=== PATIENT | male | born 1950 | race Caucasian/White ===

== ENCOUNTER → 2017-12-13 | Outpatient (CLI) | payer MEDICARE, BC ==
[~2017-12-13] MED LIST: ATOR10 PO; CEPH500 PO; Desyrel50 MG PO; HYDACE10B PO; LISI20 PO; METO25ER PO; MUPI2TC TOP; TORSE20 PO; XARELTO20 MG PO
[2017-12-13 16:59] LABS: Protein, Urine Quantitative 7.7 mg/dL (0.0-11.9)
[2017-12-13 17:03] LABS: Microalbumin, Urine Quant. 11.2 mg/L (0.000-20.000)
== END ==
LOC: LAB 09:00 → LAB SHORT 09:00 → LAB FUT 12-12 11:05
PROVIDERS: Internal Medicine Nephrology
DX: N18.3 Chronic kidney disease, stage 3 (moderate) (principal); D63.1 Anemia in chronic kidney disease; R31.9 Hematuria, unspecified; R80.9 Proteinuria, unspecified
CPT/HCPCS: 81050; 82043; 84156

== ENCOUNTER 2019-03-19 07:29 | Day surgery (SDC) | payer MEDICARE, BC ==
[~2019-03-19] VITALS: Ht 195.6 cm; Wt 258.0 kg
[~2019-03-19 07:29] MED LIST changes: +POTA10T PO
== END 2019-03-19 09:28 | disposition home or self-care (01) ==
LOC: ORSCSDS 07:29
PROVIDERS: Internal Medicine Gastroenterology
PROC: 0DBK8ZX Excision of Ascending Colon, Via Natural or Artificial Opening Endoscopic, Diagnostic (ICD-10-PCS; principal; 2019-03-19 08:45)
PROC: 0DBM8ZX Excision of Descending Colon, Via Natural or Artificial Opening Endoscopic, Diagnostic (ICD-10-PCS; principal; 2019-03-19 08:45)
DX: Z12.11 Encounter for screening for malignant neoplasm of colon (principal); Z86.010 Personal history of colon polyps; D12.2 Benign neoplasm of ascending colon; K63.5 Polyp of colon; K64.8 Other hemorrhoids; K57.30 Diverticulosis of large intestine without perforation or abscess without bleeding; G47.33 Obstructive sleep apnea (adult) (pediatric); I50.9 Heart failure, unspecified; E66.9 Obesity, unspecified; Z68.32 Body mass index [BMI] 32.0-32.9, adult; Z79.01 Long term (current) use of anticoagulants; Z79.899 Other long term (current) drug therapy
CPT/HCPCS: 88305; J2250; J2704; J7120

== ENCOUNTER 2019-04-24 16:26 | Inpatient (IN) | payer MEDICARE, BC ==
[~2019-04-24] VITALS: Ht 190.5 cm; Wt 115.0 kg
[~2019-04-24 16:26] MED LIST changes: -ACET325 PO; -ALLO100 PO; -Acetaminophen-1 EAC2 PO; -Amoxicillin500 MG PO; -BENGAY113 GM; -Colace100 MG PO; -Florastor250 MG PO; -Lisinopril2.5 MG PO; -METCAR500 PO; -MIRALAX17 GM PO; -ONDA4ODT MM; -PANT40 PO; -TORS10 PO; -TRAZ50 PO; -Toprol Xl25 MG PO; -UROCIT-K5 MEQ PO; -VITAMIN D35000 UNIT PO
[2019-04-24 16:57] LABS: BASOPHILS ABSOLUTE AUTO 0.05 K/mm3 (0.00-0.23); BASOPHILS PERCENT AUTO 1 % (0-2); EOSINOPHILS ABSOLUTE AUTO 0.36 K/mm3 (0.00-0.68); EOSINOPHILS PERCENT AUTO 4 % (0-6); Hematocrit 39.2 % (37.0-53.0); Hemoglobin 12.3 g/dL (13.5-17.5); IMMATURE GRAN ABSOLUTE AUTO 0.04 K/mm3 (0.00-0.10); IMMATURE GRAN PERCENT AUTO 1 % (0-1); LYMPHOCYTES ABSOLUTE AUTO 2.16 K/mm3 (0.84-5.20); LYMPHOCYTES PERCENT AUTO 26 % (21-46); MONOCYTES ABSOLUTE AUTO 0.86 K/mm3 (0.16-1.47); MONOCYTES PERCENT AUTO 10 % (4-13); Mean Corpuscular HGB Conc 31.4 g/dL (31.5-36.5); Mean Corpuscular Volume 99 fL (80-100); Mean Platelet Volume 9.4 fL (9.1-12.4); NEUTROPHILS ABSOLUTE AUTO 5.01 K/mm3 (1.96-9.15); NEUTROPHILS PERCENT AUTO 59 % (41-73); Platelet Count 232 K/mm3 (150-400); RDW Coefficient Variation 13.2 % (11.7-14.2); RDW Standard Deviation 47.8 fL (35.1-46.3); Red Blood Cell Count 3.97 M/mm3 (4.30-5.90); White Blood Cell Count 8.48 K/mm3 (4.00-11.30)
[2019-04-24 17:07] LABS: Albumin, Blood 3.7 g/dL (3.4-5.0); Albumin/Globulin Ratio 1.2 (0.8-1.8); Bilirubin, Total 1.1 mg/dL (0.1-1.0); Bun/Creatinine Ratio 29.1 (12.0-20.0); Calcium, Blood 9.3 mg/dL (8.5-10.1); Creatinine, Blood 2.2 mg/dL (0.60-1.20); Potassium, Blood 4.8 mmol/L (3.5-5.5); Total Protein, Blood 6.7 g/dL (6.4-8.2)
[2019-04-24 18:37] LABS: Source, Urine Voided
[2019-04-24 18:41] LABS: Bilirubin, Urine Neg (Neg); Blood, Urine Neg (Neg); Glucose Qualitative, Urine Neg (Neg); Ketones, Urine Neg (Neg); Leukocyte Esterase, Urine Neg (Neg); Nitrite, Urine Neg (Neg); Protein, Urine Neg (Neg); Urobilinogen, Urine NORM (Normal)
[2019-04-24 18:56] LABS: Appearance, Urine Clear (Clear); Color, Urine Yellow (P-Yellow)
[2019-04-24] MEDS ORDERED: ATOR10 PO (20:17)
[2019-04-24] MEDS ORDERED: LISI20 PO (20:17)
[2019-04-24] MEDS ORDERED: XARELTO20 MG PO (20:17)
[2019-04-24] MEDS ORDERED: TORSE20 PO (20:18)
[2019-04-24] MEDS ORDERED: Toprol Xl25 MG PO (20:18)
[2019-04-24] MEDS ORDERED: UROCIT-K5 MEQ PO (20:19)
[2019-04-24] MEDS ORDERED: TRAZ50 PO (20:54)
[2019-04-24] MEDS ORDERED: VITAMIN D35000 UNIT PO (20:54)
[2019-04-24] MEDS ORDERED: METCAR500 PO (21:46)
[2019-04-24] MEDS ORDERED: Acetaminophen-1 EAC2 PO (21:46)
--- NOTE | 2019-04-24 22:51 | NUR ---
CALLED HOSPITALIST, JEFF HERNANDEZ, TO CLARIFY DVT PROPHYLAXIS ORDER. ORDER FOR SCD'S AND XARELTO TO BE STARTED PLACED BY DR ELIZABETH. DAVID TALKED DR ELIZABETH TO CLARIFY WHICH ONE TO CONTINUE. PER DR ELIZABETH, CONTINUE SCD'S, THE BLOOD CLOT IN LLE IS INSIGNIFICANT AND OKAY TO PLACE SCD'S. XARELTO WILL BE DISCONTINUED AT THIS TIME.
--- NOTE | 2019-04-25 05:12 | NUR ---
SHIFT SUMMARY RECIEVED REPORT FROM MINDY JOINER RN. ARRIVED TO MEDICAL FLOOR @ 2116 VIA STRETCHER. ORIENTED TO ROOM AND CALL SYSTEM. A/O, ABLE TO MAKE NEEDS KNOWN. COOPERATIVE WITH CARE. 1P ASSIST TO BATHROOM; STEADY GAIT. CPAP @ HS. FEBRILE SINCE ARRIVAL; MEDICATED PER EMAR. EMESIS X1; ANTIEMETIC GIVEN. BED REAMINS IN LOWEST POSITION. CALL LIGHT WITHIN REACH. WCTM. REPORT TO ONCOMING RN.
[2019-04-25 05:19] LABS: BASOPHILS ABSOLUTE AUTO 0.02 K/mm3 (0.00-0.23); BASOPHILS PERCENT AUTO 0 % (0-2); EOSINOPHILS ABSOLUTE AUTO 0.03 K/mm3 (0.00-0.68); EOSINOPHILS PERCENT AUTO 0 % (0-6); Hematocrit 36.3 % (37.0-53.0); Hemoglobin 11.5 g/dL (13.5-17.5); IMMATURE GRAN ABSOLUTE AUTO 0.05 K/mm3 (0.00-0.10); IMMATURE GRAN PERCENT AUTO 1 % (0-1); LYMPHOCYTES ABSOLUTE AUTO 0.66 K/mm3 (0.84-5.20); LYMPHOCYTES PERCENT AUTO 6 % (21-46); MONOCYTES ABSOLUTE AUTO 1.05 K/mm3 (0.16-1.47); MONOCYTES PERCENT AUTO 10 % (4-13); Mean Corpuscular HGB 31.3 pg (26.0-34.0); Mean Corpuscular HGB Conc 31.7 g/dL (31.5-36.5); Mean Corpuscular Volume 99 fL (80-100); Mean Platelet Volume 9.8 fL (9.1-12.4); NEUTROPHILS ABSOLUTE AUTO 9.08 K/mm3 (1.96-9.15); NEUTROPHILS PERCENT AUTO 83 % (41-73); Platelet Count 219 K/mm3 (150-400); RDW Coefficient Variation 13.5 % (11.7-14.2); RDW Standard Deviation 48.9 fL (35.1-46.3); Red Blood Cell Count 3.67 M/mm3 (4.30-5.90); White Blood Cell Count 10.89 K/mm3 (4.00-11.30)
[2019-04-25 06:05] LABS: Albumin, Blood 3.5 g/dL (3.4-5.0); Albumin/Globulin Ratio 1.2 (0.8-1.8); Bilirubin, Total 2.7 mg/dL (0.1-1.0); Bun/Creatinine Ratio 22.4 (12.0-20.0); Calcium, Blood 8.9 mg/dL (8.5-10.1); Creatinine, Blood 2.9 mg/dL (0.60-1.20); Globulin, Blood 2.8 g/dL (2.2-4.0); Potassium, Blood 6.2 mmol/L (3.5-5.5); Total Protein, Blood 6.3 g/dL (6.4-8.2)
--- NOTE | 2019-04-25 06:39 | NUR ---
4458 PHYSICIAN CORRESPONDENCE PATIENT HAS MULTIPLE ABNORMAL LABS INCLUDING CRITICAL K+ @ 6.2. BLADDER SCAN ORDERED. TELE. SX CONSULT. IV ZOSYN. BICARB AND INSULIN.
[2019-04-25 09:33] LABS: Bun/Creatinine Ratio 22.7 (12.0-20.0); Calcium, Blood 9.2 mg/dL (8.5-10.1); Creatinine, Blood 3.08 mg/dL (0.60-1.20); Potassium, Blood 4.9 mmol/L (3.5-5.5)
--- NOTE | 2019-04-25 09:45 | NUR ---
SPOKE WITH DR DON RE: K LEVEL = 4.9. VO TO D/C ORDERS FOR IV INSULIN, DEXTROSE, CALCIUM. DAY SURGERY INFORMED OF K LEVEL. DAUGHTER AT BEDSIDE.
--- NOTE | 2019-04-25 10:55 | NUR ---
DAY SURGERY RN HERE, PATIENT TO DAY SURGERY.
--- NOTE | 2019-04-25 11:08 | NUR ---
PT TRANSPORTED TO [facility]. [facility] WITH PLANNED SURGERY. LUNG SOUNDS CLEAR. PT WITH TREMORS, STATESTHIS HAS STARTED SINCE HE HAS BEEN IN THE HOSPITAL. BP88/52. DR. OROZCO AT [facility] AND AWARE.
--- NOTE | 2019-04-25 11:14 | NUR ---
REPORT GIVEN TO DON BYRNES RN.
--- NOTE | 2019-04-25 11:31 | NUR ---
Pt SENT DOWN FOR SURGERY, ROUNDING NOT NEEDED.
--- NOTE | 2019-04-25 12:06 | NUR ---
04/25/19 1206 Ismael Morris THE SURGICAL TEAM, INCLUDING THE SURVEY FIELD TECHNICIAN, SCRUB AND ANESTHESIOLOGIST CONSULTED THE SURGEON ABOUT USING PAS STOCKINGS ON THIS PT WHO IS CURRENTLY BEING TREATED FOR A DVT. THE SURGEON REQUESTED THAT WE USE THE PAS STOCKINGS DURING THE PROCEDURE.
--- NOTE | 2019-04-25 12:30 | NUR ---
REPORT GIVEN TO Heath KRISHNA. PATIENT TO ADMIT TO ROOM 230 FOLLOWING SURGERY.
--- NOTE | 2019-04-25 19:24 | NUR ---
SUMMARY: SOME INCREASED SOB AND TACHYPNEA POST OP. RT CALLED AND PT PUT ON HOME CPAP, SEE RT NOTES. DR. SANTANATRATE NOTIFIED OF PT RESPIRATORY STATUS POST OP. SEE NEW ORDERS. ALL OTHER VSS, PT A/O. SURGICAL SITES WNL, MEDICATED FOR PAIN PRN. TELE VERIFIED, AND WNL. PT DENIES CHEST PAIN. WILL CTM AND GIVE REPORT TO NOC RN. NO ACUTE CONCERNS AT THIS TIME.
[2019-04-26 03:07] LABS: HBSAG SCREEN Negative (Negative); HEP A AB, IGM Negative (Negative); HEP B CORE AB, IGM Negative (Negative); HEP C VIRUS AB <0.1 (0.0-0.9)
[2019-04-26 04:48] LABS: BASOPHILS ABSOLUTE AUTO 0.01 K/mm3 (0.00-0.23); BASOPHILS PERCENT AUTO 0 % (0-2); EOSINOPHILS PERCENT AUTO 0 % (0-6); Hemoglobin 12.1 g/dL (13.5-17.5); IMMATURE GRAN ABSOLUTE AUTO 0.05 K/mm3 (0.00-0.10); IMMATURE GRAN PERCENT AUTO 1 % (0-1); LYMPHOCYTES ABSOLUTE AUTO 0.56 K/mm3 (0.84-5.20); LYMPHOCYTES PERCENT AUTO 6 % (21-46); MONOCYTES ABSOLUTE AUTO 0.75 K/mm3 (0.16-1.47); MONOCYTES PERCENT AUTO 8 % (4-13); Mean Corpuscular HGB 31.9 pg (26.0-34.0); Mean Corpuscular HGB Conc 31.8 g/dL (31.5-36.5); Mean Corpuscular Volume 100 fL (80-100); Mean Platelet Volume 9.5 fL (9.1-12.4); NEUTROPHILS ABSOLUTE AUTO 8.14 K/mm3 (1.96-9.15); NEUTROPHILS PERCENT AUTO 86 % (41-73); Platelet Count 220 K/mm3 (150-400); RDW Coefficient Variation 14.1 % (11.7-14.2); RDW Standard Deviation 52.4 fL (35.1-46.3); Red Blood Cell Count 3.79 M/mm3 (4.30-5.90); White Blood Cell Count 9.51 K/mm3 (4.00-11.30)
[2019-04-26 05:10] LABS: Magnesium, Blood 2.3 mg/dL (1.6-2.4)
[2019-04-26 05:20] LABS: Alanine Aminotransfer (ALT/SGP 479 U/L (12-78); Albumin, Blood 3.5 g/dL (3.4-5.0); Alk Phos 199 U/L (50-136); Anion Gap 10 mmol/L (6-16); Aspartate Aminotrans (AST/SGOT 415 U/L (12-37); Bilirubin, Total 3.7 mg/dL (0.1-1.0); Blood Urea Nitrogen 68 mg/dL (8-24); CO2, Blood 21 mmol/L (21-32); Calcium, Blood 9.4 mg/dL (8.5-10.1); Chloride, Blood 111 mmol/L (98-108); Globulin, Blood 3.5 g/dL (2.2-4.0); Glomerular Filtration Rate 19 (60-); Glucose, Blood 164 mg/dL (70-99); Phosphorus, Blood 2.9 mg/dL (2.5-4.9); Potassium, Blood 5.6 mmol/L (3.5-5.5); Sodium, Blood 142 mmol/L (136-145)
--- NOTE | 2019-04-26 05:35 | NUR ---
POD 1 S/P LAP SURJIT. PT HAD NO ACUTE CHANGES T/O NIGHT; VSS. HR SINUS TACH 70'S-110 PER TELE MONITOR. PT DENIED CP, REP WOB IMPROVING, DENIED NEED FOR RT TX. DRESSINGS CDI. PAIN MGD PER EMAR, PT REP PBETTER PAIN CONTROL W/PO PAIN MEDS. PT STRUGGLED W/N/V SURING NIGHT, HAD 1 EPISODE OF EMESIS. PT UP OOB W/FWW+SBA, IS USING CALL LIGHT FOR ASSISTANCE. WILL CONT TO MONITOR UNTIL REP GIVEN TO ONCOMING RN.
[2019-04-26 15:23] LABS: Albumin, Blood 3.3 g/dL (3.4-5.0); Albumin/Globulin Ratio 0.9 (0.8-1.8); Bilirubin, Total 2.5 mg/dL (0.1-1.0); Bun/Creatinine Ratio 20.2 (12.0-20.0); Calcium, Blood 9.6 mg/dL (8.5-10.1); Creatinine, Blood 3.27 mg/dL (0.60-1.20); Globulin, Blood 3.5 g/dL (2.2-4.0); Potassium, Blood 4.9 mmol/L (3.5-5.5); Total Protein, Blood 6.8 g/dL (6.4-8.2)
--- NOTE | 2019-04-26 15:47 | NUR ---
REPORT GIVEN TO JOSE DESIR RN AT 2444
--- NOTE | 2019-04-26 23:28 | NUR ---
PATIENT CALLED TO STAFF TO REPORT PAIN POINTED TO MID CHEST AND REPORTS HE FEELS IT IS RELATED TO "HEARTBURN"; "I TOOK ALL THOSE MEDS LAST NIGHT AND DIDNT EAT". PATIENT REPORTS "NOT EATING AND TAKING MEDICATIONS, IT'S A SET UP FOR HEARTBURN". PATIENT ALSO REPORTED NAUSEA; MEDICATED PER EMAR; PATIENT REPORTS FEELING ALOT BETTER. PATIENT REPORTS HE WOULD LIKE SOME DANNY MIST OR TO GET UP OUT OF BED.
--- NOTE | 2019-04-26 23:41 | NUR ---
PATIENT STOOD WITH SBA AND FWW; WALKED AROUND ROOM; BELCHED ABOUT 8 TIMES; REPORTS FEELNG "MUCH, MUCH BETTER". PATIENT BACK IN BED; REQUESTED CPAP AND BELCHED A FEW MORE TIMES. WILL CONTINUE TO MONITOR AND ASSESS UNTIL END OF SHIFT.
--- NOTE | 2019-04-27 04:20 | NUR ---
ASSUMED CARE OF PATIENT AT APPROXIMATELY 1910 FROM FRANCESCO DESIR. PATIENT ALERT AND ORIENTED X4. PATIENT REPORTS PAIN TOLERABLE AT THIS TIME. PATIENT REPORTS N/T TO BLE AND HAS SOME WEAKNESS; +1 EDEMA; REPORTED CHRONIC. PATIENT REPORTS LEFT LEG GIVES HIM ISSUES WHEN WALKING; ONE ASSIST WITH FWW OUT OF BED. PATIENT NAUSEOUS ONCE LAST NIGHT; REPORTED HEARTBURN INTERMITTENT AT START OF SHIFT YESTERDAY; SEE PREVIOUS NURSING NOTED. NSR ON TELE; OXYGEN SATURATION ABOVE 90% ON ROOM AIR; USES HOME CPAP WITH 2LPM BLEED IN. PATIENT HAS HARSH COUGH; COUGHING UP CLEAR TO THICK YELLOW SPUTUM. PATIENT USES URINAL IN BED. PATIENT CURRENTLY RESTING IN BED; CALL LIGHT IN REACH; BED IN LOWEST POSISTION; BED ALARM ON; WILL CONTINUE TO MONITOR AND ASSESS UNTIL END OF SHIFT.
[2019-04-27 05:01] LABS: BASOPHILS ABSOLUTE AUTO 0.02 K/mm3 (0.00-0.23); BASOPHILS PERCENT AUTO 0 % (0-2); EOSINOPHILS ABSOLUTE AUTO 0.47 K/mm3 (0.00-0.68); EOSINOPHILS PERCENT AUTO 6 % (0-6); Hematocrit 36.2 % (37.0-53.0); Hemoglobin 11.5 g/dL (13.5-17.5); IMMATURE GRAN ABSOLUTE AUTO 0.02 K/mm3 (0.00-0.10); IMMATURE GRAN PERCENT AUTO 0 % (0-1); LYMPHOCYTES ABSOLUTE AUTO 0.96 K/mm3 (0.84-5.20); LYMPHOCYTES PERCENT AUTO 11 % (21-46); MONOCYTES ABSOLUTE AUTO 0.74 K/mm3 (0.16-1.47); MONOCYTES PERCENT AUTO 9 % (4-13); Mean Corpuscular HGB 31.7 pg (26.0-34.0); Mean Corpuscular HGB Conc 31.8 g/dL (31.5-36.5); Mean Corpuscular Volume 100 fL (80-100); Mean Platelet Volume 9.8 fL (9.1-12.4); NEUTROPHILS ABSOLUTE AUTO 6.24 K/mm3 (1.96-9.15); NEUTROPHILS PERCENT AUTO 74 % (41-73); Platelet Count 226 K/mm3 (150-400); RDW Coefficient Variation 14.1 % (11.7-14.2); Red Blood Cell Count 3.63 M/mm3 (4.30-5.90); White Blood Cell Count 8.45 K/mm3 (4.00-11.30)
[2019-04-27 05:25] LABS: Alanine Aminotransfer (ALT/SGP 324 U/L (12-78); Albumin, Blood 3.2 g/dL (3.4-5.0); Alk Phos 216 U/L (50-136); Anion Gap 9 mmol/L (6-16); Aspartate Aminotrans (AST/SGOT 219 U/L (12-37); Bilirubin, Total 2.3 mg/dL (0.1-1.0); Blood Urea Nitrogen 67 mg/dL (8-24); Bun/Creatinine Ratio 22.3 (12.0-20.0); CO2, Blood 20 mmol/L (21-32); Calcium, Blood 9.5 mg/dL (8.5-10.1); Chloride, Blood 108 mmol/L (98-108); Globulin, Blood 3.3 g/dL (2.2-4.0); Glomerular Filtration Rate 22 (60-); Glucose, Blood 118 mg/dL (70-99); Magnesium, Blood 2.4 mg/dL (1.6-2.4); Phosphorus, Blood 3.4 mg/dL (2.5-4.9); Potassium, Blood 4.6 mmol/L (3.5-5.5); Sodium, Blood 137 mmol/L (136-145); Total Protein, Blood 6.5 g/dL (6.4-8.2)
--- NOTE | 2019-04-27 06:43 | NUR ---
NO ACUTE CHANGES TO REPORT. PATIENT SLEPT ABOUT EIGHT HOURS LAST NIGHT.
[2019-04-27] MEDS ORDERED: TORS10 PO (09:27)
--- NOTE | 2019-04-27 15:16 | NUR ---
UPDATED DR. FROST ON I/O. NO NEW ORDERS AT THIS TIME.
--- NOTE | 2019-04-27 16:49 | NUR ---
SHIFT SUMMARY PT DOING BETTER THIS SHIFT. VSS. LAP SITES TO ABD ARE CDI. MEDICATED WITH NORCO NEEDED FOR PAIN. ROSA CLEAR LIQ DIET, ADVANCING TO FULL LIQ FOR DINNER. PT PASSING GAS AND DENIES N/V. LUNGS SOUNDS WERE WHEEZY THIS MORNING. RT TREATMENTS AND LASIX GIVEN. LUNG SOUNDS WITH LESS WHEEZES AND PT REPORTS LESS SOB. ON RA. USES CPAP AT NOC. GOOD URINE OUTPUT CLEAR YELLOW. USING THE URINAL TO VOID. IV IS SL. PT DID SIT IN THE RECLINER CHAIR FOR PART OF THE DAY AND DID HAVE A SHOWER. FAMILY PRESENT AT BEDSIDE FOR SUPPORT. WILL CONT TO MONITOR. CALL LIGHT WITHIN REACH.
--- NOTE | 2019-04-28 03:04 | NUR ---
SHIFT SUMMARY: PATIENT AMBULATED ENTIRE UNIT THIS SHIFT WITH SOME SOB THAT PATIENT STATED WAS BASELINE FOR HIM. INCISION SITE LOOKS C/D/I WITH NO SIGN OF INFECTION NOTED. PATIENT COMPLIANT WITH CALL LIGHT THIS SHIFT AND USING CPAP. SBP 95 BUT PATIENT ASYMPTOMATIC AND HAD RECIEVED LASIX EARLIER IN THE DAY. NO OTHER ISSUES NOTED, CALL LIGHT WITHIN REACH AND BED LOW AND LOCKED.
[2019-04-28 05:15] LABS: BASOPHILS ABSOLUTE AUTO 0.03 K/mm3 (0.00-0.23); BASOPHILS PERCENT AUTO 0 % (0-2); EOSINOPHILS ABSOLUTE AUTO 0.56 K/mm3 (0.00-0.68); EOSINOPHILS PERCENT AUTO 8 % (0-6); Hematocrit 33.1 % (37.0-53.0); Hemoglobin 10.5 g/dL (13.5-17.5); IMMATURE GRAN ABSOLUTE AUTO 0.05 K/mm3 (0.00-0.10); IMMATURE GRAN PERCENT AUTO 1 % (0-1); LYMPHOCYTES ABSOLUTE AUTO 1.31 K/mm3 (0.84-5.20); LYMPHOCYTES PERCENT AUTO 19 % (21-46); MONOCYTES ABSOLUTE AUTO 0.75 K/mm3 (0.16-1.47); MONOCYTES PERCENT AUTO 11 % (4-13); Mean Corpuscular HGB 31.7 pg (26.0-34.0); Mean Corpuscular HGB Conc 31.7 g/dL (31.5-36.5); Mean Corpuscular Volume 100 fL (80-100); Mean Platelet Volume 9.7 fL (9.1-12.4); NEUTROPHILS ABSOLUTE AUTO 4.19 K/mm3 (1.96-9.15); NEUTROPHILS PERCENT AUTO 61 % (41-73); Platelet Count 202 K/mm3 (150-400); RDW Coefficient Variation 14.1 % (11.7-14.2); RDW Standard Deviation 51.7 fL (35.1-46.3); Red Blood Cell Count 3.31 M/mm3 (4.30-5.90); White Blood Cell Count 6.89 K/mm3 (4.00-11.30)
[2019-04-28 05:36] LABS: Albumin, Blood 2.8 g/dL (3.4-5.0); Albumin/Globulin Ratio 0.8 (0.8-1.8); Bilirubin, Total 2.4 mg/dL (0.1-1.0); Bun/Creatinine Ratio 20.1 (12.0-20.0); Calcium, Blood 8.8 mg/dL (8.5-10.1); Creatinine, Blood 3.34 mg/dL (0.60-1.20); Globulin, Blood 3.4 g/dL (2.2-4.0); Potassium, Blood 4.5 mmol/L (3.5-5.5); Total Protein, Blood 6.2 g/dL (6.4-8.2)
--- NOTE | 2019-04-28 16:25 | NUR ---
SHIFT SUMMARY NO ACUTE CHANGES TODAY. PT CONT TO DO WELL. STERI STRIPS TO ABD ARE CDI. ROSA FULL LIQ DIET AND ADVANCING TO REG IN THE MORNING. PT PASSING GAS AND HAD A BM TODAY. AMBULATING HALLWAY WITH 1 SBA WITH FWW. DIURESING WELL. FAMILY AT BEDSIDE FOR SUPPORT. PT USES CALL LIGHT APPROPRIATELY.
[2019-04-29 04:13] LABS: BASOPHILS ABSOLUTE AUTO 0.04 K/mm3 (0.00-0.23); BASOPHILS PERCENT AUTO 1 % (0-2); EOSINOPHILS ABSOLUTE AUTO 0.59 K/mm3 (0.00-0.68); EOSINOPHILS PERCENT AUTO 9 % (0-6); Hematocrit 33.1 % (37.0-53.0); Hemoglobin 10.7 g/dL (13.5-17.5); IMMATURE GRAN ABSOLUTE AUTO 0.09 K/mm3 (0.00-0.10); IMMATURE GRAN PERCENT AUTO 1 % (0-1); LYMPHOCYTES ABSOLUTE AUTO 1.58 K/mm3 (0.84-5.20); LYMPHOCYTES PERCENT AUTO 23 % (21-46); MONOCYTES ABSOLUTE AUTO 0.75 K/mm3 (0.16-1.47); MONOCYTES PERCENT AUTO 11 % (4-13); Mean Corpuscular HGB 31.8 pg (26.0-34.0); Mean Corpuscular HGB Conc 32.3 g/dL (31.5-36.5); Mean Corpuscular Volume 99 fL (80-100); Mean Platelet Volume 9.6 fL (9.1-12.4); NEUTROPHILS ABSOLUTE AUTO 3.81 K/mm3 (1.96-9.15); NEUTROPHILS PERCENT AUTO 56 % (41-73); Platelet Count 232 K/mm3 (150-400); RDW Standard Deviation 50.6 fL (35.1-46.3); Red Blood Cell Count 3.36 M/mm3 (4.30-5.90); White Blood Cell Count 6.86 K/mm3 (4.00-11.30)
[2019-04-29 04:37] LABS: Alanine Aminotransfer (ALT/SGP 159 U/L (12-78); Albumin, Blood 2.9 g/dL (3.4-5.0); Albumin/Globulin Ratio 0.8 (0.8-1.8); Alk Phos 260 U/L (50-136); Anion Gap 9 mmol/L (6-16); Aspartate Aminotrans (AST/SGOT 79 U/L (12-37); Blood Urea Nitrogen 58 mg/dL (8-24); Bun/Creatinine Ratio 23.5 (12.0-20.0); CO2, Blood 22 mmol/L (21-32); Calcium, Blood 9.1 mg/dL (8.5-10.1); Chloride, Blood 106 mmol/L (98-108); Creatinine, Blood 2.47 mg/dL (0.60-1.20); Globulin, Blood 3.6 g/dL (2.2-4.0); Glomerular Filtration Rate 28 (60-); Glucose, Blood 108 mg/dL (70-99); Magnesium, Blood 2.2 mg/dL (1.6-2.4); Phosphorus, Blood 3.6 mg/dL (2.5-4.9); Potassium, Blood 4.6 mmol/L (3.5-5.5); Sodium, Blood 137 mmol/L (136-145); Total Protein, Blood 6.5 g/dL (6.4-8.2)
[2019-04-29 04:38] LABS: Bilirubin, Total 1.3 mg/dL (0.1-1.0)
--- NOTE | 2019-04-29 05:46 | NUR ---
SHIFT SUMMARY PT A&O X4 T/O SHIFT. POD#4 LAP SURJIT; LAP SITES CDI. ABD DISTENDED, BTX4; PT DENIES NAUSESA, TOLERATING DIET WELL. CHRONIC AND ACUTE PAIN MANAGED PER EMAR. HOME PAP AND O2 BLEED BASELINE WHILE ASLEEP; CONT. OXIMITRY IN PLACE. PT SOW WITH EXERTION. UP IN CHAIR THIS AM. SCD'S TO BLE'S. CALL LIGHT IN REACH; PT DEMONSTRATES USE. WCTM UNTIL REPORT TO DAY SHIFT RN.
[2019-04-29] MEDS ORDERED: Lisinopril2.5 MG PO (09:45)
[2019-04-29] MEDS ORDERED: ACET325 PO (09:46)
[2019-04-29] MEDS ORDERED: BENGAY113 GM (09:46)
[2019-04-29] MEDS ORDERED: PANT40 PO (09:47)
[2019-04-29] MEDS ORDERED: ONDA4ODT MM (09:47)
[2019-04-29] MEDS ORDERED: Colace100 MG PO (09:47)
[2019-04-29] MEDS ORDERED: MIRALAX17 GM PO (09:48)
[2019-04-29] MEDS ORDERED: Florastor250 MG PO (09:48)
--- NOTE | 2019-04-29 12:40 | NUR ---
DISCHARGE: PACKET PRINTED AND INSTRUCTIONS GIVEN, PT VERBALIZED UNDERSTANDING . PT TO HAVE REPEAT OUT PT LABS IN 2-3 DAYS, SCRIPT FROM DR. DON GIVEN TO PT. OTHER NEW MEDS CALLED TO PHARMACY. IV DC'D AND PT LEFT UNIT IN WC WITH FRIEND AT 1207
== END 2019-04-29 12:06 | disposition home or self-care (01) | DRG 412 ==
LOC: ER 16:26 → MEDS 20:05 → ER 20:05 → MEDS 20:06 → SURS 20:06 → MEDS 21:17 → SURS 04-25 13:06
PROVIDERS: Emergency Medicine; Family Medicine; Internal Medicine Nephrology; Surgery; ADMIT Hospitalist
PROC: BF13YZZ Fluoroscopy of Gallbladder and Bile Ducts using Other Contrast (ICD-10-PCS; 2019-04-25)
PROC: 3C1ZX8Z Irrigation of Indwelling Device using Irrigating Substance, External Approach (ICD-10-PCS; 2019-04-25)
PROC: 0FJB4ZZ Inspection of Hepatobiliary Duct, Percutaneous Endoscopic Approach (ICD-10-PCS; 2019-04-25)
PROC: 0FT44ZZ Resection of Gallbladder, Percutaneous Endoscopic Approach (ICD-10-PCS; principal; 2019-04-25 11:45)
DX: K80.00 Calculus of gallbladder with acute cholecystitis without obstruction (principal); N25.81 Secondary hyperparathyroidism of renal origin; I13.0 Hypertensive heart and chronic kidney disease with heart failure and stage 1 through stage 4 chronic kidney disease, or unspecified chronic kidney disease; I50.32 Chronic diastolic (congestive) heart failure; E80.6 Other disorders of bilirubin metabolism; Z79.01 Long term (current) use of anticoagulants; I12.9 Hypertensive chronic kidney disease with stage 1 through stage 4 chronic kidney disease, or unspecified chronic kidney disease; N18.3 Chronic kidney disease, stage 3 (moderate); E87.5 Hyperkalemia; D63.1 Anemia in chronic kidney disease; G47.33 Obstructive sleep apnea (adult) (pediatric)
CPT/HCPCS: 36415; 71045; 71275; 74175; 74176; 74181; 74300; 76705; 76770; 80048; 80053; 80069; 80074; 81003; 82550; 82947; 83605; 83690; 83735; 84100; 85014; 85018; 85025; 86850; 86900; 86901; 87040; 88304; 93005; 93010; 94640; 94644; 94660; 94762; 96361; 96374-59; 96375-59; 96376-59; 99285-25; A9270; A9270-GY; C1726; C1729; C1894; C9113; J0610; J1100; J1170; J1610; J1650; J1815; J1940; J2405; J2543; J2704; J2710; J3010; J7030; J7050; J7120; J7799; Q9967

== ENCOUNTER → 2019-04-24 | Outpatient (CLI) | payer MEDICARE, BC ==
[~2019-04-24] MED LIST changes: +ACET325 PO; +ALLO100 PO; +Acetaminophen-1 EAC2 PO; +Amoxicillin500 MG PO; +BENGAY113 GM; +Colace100 MG PO; +Florastor250 MG PO; +Lisinopril2.5 MG PO; +METCAR500 PO; +MIRALAX17 GM PO; +ONDA4ODT MM; +PANT40 PO; +TORS10 PO; +TRAZ50 PO; +Toprol Xl25 MG PO; +UROCIT-K5 MEQ PO; +VITAMIN D35000 UNIT PO
[2019-04-24 15:54] LABS: BASOPHILS ABSOLUTE AUTO 0.06 K/mm3 (0.00-0.23); BASOPHILS PERCENT AUTO 1 % (0-2); EOSINOPHILS ABSOLUTE AUTO 0.42 K/mm3 (0.00-0.68); EOSINOPHILS PERCENT AUTO 4 % (0-6); Hemoglobin 13.2 g/dL (13.5-17.5); IMMATURE GRAN ABSOLUTE AUTO 0.04 K/mm3 (0.00-0.10); IMMATURE GRAN PERCENT AUTO 0 % (0-1); LYMPHOCYTES ABSOLUTE AUTO 3.22 K/mm3 (0.84-5.20); LYMPHOCYTES PERCENT AUTO 32 % (21-46); MONOCYTES ABSOLUTE AUTO 0.99 K/mm3 (0.16-1.47); MONOCYTES PERCENT AUTO 10 % (4-13); Mean Corpuscular HGB 32.1 pg (26.0-34.0); Mean Corpuscular Volume 97 fL (80-100); Mean Platelet Volume 9.1 fL (9.1-12.4); NEUTROPHILS ABSOLUTE AUTO 5.49 K/mm3 (1.96-9.15); NEUTROPHILS PERCENT AUTO 54 % (41-73); Platelet Count 256 K/mm3 (150-400); RDW Coefficient Variation 13.3 % (11.7-14.2); RDW Standard Deviation 47.8 fL (35.1-46.3); Red Blood Cell Count 4.11 M/mm3 (4.30-5.90); White Blood Cell Count 10.22 K/mm3 (4.00-11.30)
[2019-04-24 16:07] LABS: Alanine Aminotransfer (ALT/SGP 78 U/L (12-78); Albumin/Globulin Ratio 1.2 (0.8-1.8); Alk Phos 103 U/L (40-126); Amylase, Blood 65 U/L (25-115); Anion Gap 11 mmol/L (6-16); Aspartate Aminotrans (AST/SGOT 116 U/L (12-37); Bilirubin, Total 1.1 mg/dL (0.1-1.0); Blood Urea Nitrogen 67 mg/dL (8-24); Bun/Creatinine Ratio 26.9 (12.0-20.0); CO2, Blood 25 mmol/L (21-32); Calcium, Blood 9.9 mg/dL (8.5-10.1); Chloride, Blood 106 mmol/L (98-108); Creatinine, Blood 2.49 mg/dL (0.60-1.20); Globulin, Blood 3.3 g/dL (2.2-4.0); Glomerular Filtration Rate 26 (60-); Glucose, Blood 129 mg/dL (70-99); Potassium, Blood 4.4 mmol/L (3.5-5.5); Sodium, Blood 142 mmol/L (136-145); Total Protein, Blood 7.3 g/dL (6.4-8.2)
[2019-04-24 16:08] LABS: Troponin I <0.017 ng/mL (0.000-0.040)
== END | disposition home or self-care (01) ==
LOC: LAB EV 15:50 → LAB SHORT 15:50
PROVIDERS: Physician Assistant Surgical
DX: R10.9 Unspecified abdominal pain (principal)
CPT/HCPCS: 80053; 82150; 84484; 85025

== ENCOUNTER 2019-06-18 15:59 | Emergency (ER) | payer MEDICARE, BC ==
[~2019-06-18] VITALS: Ht 190.5 cm; Wt 108.9 kg
[~2019-06-18 15:59] MED LIST changes: +ACET325 PO; +Acetaminophen-1 EAC2 PO; +BENGAY113 GM; +Colace100 MG PO; +Florastor250 MG PO; +Lisinopril2.5 MG PO; +METCAR500 PO; +MIRALAX17 GM PO; +ONDA4ODT MM; +PANT40 PO; +TORS10 PO; +TRAZ50 PO; +Toprol Xl25 MG PO; +UROCIT-K5 MEQ PO; +VITAMIN D35000 UNIT PO
[2019-06-18 16:39] LABS: BASOPHILS ABSOLUTE AUTO 0.09 K/mm3 (0.00-0.23); BASOPHILS PERCENT AUTO 1 % (0-2); EOSINOPHILS ABSOLUTE AUTO 0.36 K/mm3 (0.00-0.68); EOSINOPHILS PERCENT AUTO 5 % (0-6); Hematocrit 38.3 % (37.0-53.0); Hemoglobin 12.5 g/dL (13.5-17.5); IMMATURE GRAN ABSOLUTE AUTO 0.02 K/mm3 (0.00-0.10); IMMATURE GRAN PERCENT AUTO 0 % (0-1); LYMPHOCYTES ABSOLUTE AUTO 1.67 K/mm3 (0.84-5.20); LYMPHOCYTES PERCENT AUTO 24 % (21-46); MONOCYTES ABSOLUTE AUTO 0.79 K/mm3 (0.16-1.47); MONOCYTES PERCENT AUTO 11 % (4-13); Mean Corpuscular HGB 31.4 pg (26.0-34.0); Mean Corpuscular HGB Conc 32.6 g/dL (31.5-36.5); NEUTROPHILS ABSOLUTE AUTO 4.03 K/mm3 (1.96-9.15); NEUTROPHILS PERCENT AUTO 58 % (41-73); Platelet Count 261 K/mm3 (150-400); RDW Coefficient Variation 12.8 % (11.7-14.2); RDW Standard Deviation 46.1 fL (35.1-46.3); Red Blood Cell Count 3.98 M/mm3 (4.30-5.90); White Blood Cell Count 6.96 K/mm3 (4.00-11.30)
[2019-06-18 16:44] LABS: Mean Corpuscular Volume 96 fL (80-100)
[2019-06-18] MEDS ORDERED: ALLO100 PO (16:56)
[2019-06-18] MEDS ORDERED: TORSE20 PO (16:58)
[2019-06-18 17:07] LABS: Troponin I <0.015 ng/mL (0.000-0.040)
[2019-06-18 17:09] LABS: Alanine Aminotransfer (ALT/SGP 21 U/L (12-78); Albumin, Blood 3.7 g/dL (3.4-5.0); Alk Phos 131 U/L (50-136); Anion Gap 11 mmol/L (6-16); Aspartate Aminotrans (AST/SGOT 34 U/L (12-37); Bilirubin, Total 1.1 mg/dL (0.1-1.0); Blood Urea Nitrogen 39 mg/dL (8-24); Bun/Creatinine Ratio 15.2 (12.0-20.0); CO2, Blood 25 mmol/L (21-32); Calcium, Blood 9.7 mg/dL (8.5-10.1); Chloride, Blood 99 mmol/L (98-108); Creatinine, Blood 2.56 mg/dL (0.60-1.20); Globulin, Blood 3.6 g/dL (2.2-4.0); Glomerular Filtration Rate 26 (60-); Glucose, Blood 116 mg/dL (70-99); Potassium, Blood 3.7 mmol/L (3.5-5.5); Sodium, Blood 135 mmol/L (136-145); Total Protein, Blood 7.3 g/dL (6.4-8.2)
[2019-06-18 17:11] LABS: Source, Urine Clean Catch
[2019-06-18 17:13] LABS: Bilirubin, Urine Neg (Neg); Blood, Urine 1+ (Neg); Glucose Qualitative, Urine Neg (Neg); Ketones, Urine Neg (Neg); Leukocyte Esterase, Urine Neg (Neg); Nitrite, Urine Neg (Neg); Protein, Urine Neg (Neg); Specific Gravity, Urine 1.015 (1.003-1.022); Urobilinogen, Urine NORM (Normal)
[2019-06-18 17:23] LABS: Appearance, Urine Clear (Clear); Color, Urine Yellow (P-Yellow)
[2019-06-18 17:24] LABS: Bacteria Few /hpf; Hyaline Casts 0-2 /lpf (0-2); Red Blood Cells, Urine 0-2 /hpf (0-2); Squamous Epithelial Cells Not Seen /hpf (Few); White Blood Cells, Urine 0-2 /hpf (0-5)
[2019-06-18] MEDS ORDERED: Amoxicillin500 MG PO (18:57)
== END 2019-06-18 19:35 | disposition home or self-care (01) ==
LOC: ER 15:59
PROVIDERS: Physician Assistant
DX: R06.00 Dyspnea, unspecified (principal); R60.0 Localized edema; Z88.6 Allergy status to analgesic agent; Z79.899 Other long term (current) drug therapy; Z79.01 Long term (current) use of anticoagulants
CPT/HCPCS: 36415; 71046; 80053; 81001; 83690; 83880; 84484; 85025; 93005; 93010; 99284-25

== ENCOUNTER 2020-12-02 08:07 | Day surgery (SDC) | payer MEDICARE, BC ==
[~2020-12-02] VITALS: Ht 190.5 cm; Wt 106.5 kg
[~2020-12-02 08:07] MED LIST changes: +ALLO100 PO; +Amoxicillin500 MG PO
[2020-12-02] MEDS ORDERED: Percocet 7.5-31 EACH PO (08:53)
--- NOTE | 2020-12-02 09:45 | NUR ---
12/02/20 0945 Shelly Ireland BUPIVACAINE 0.5% MIXED WITH EPI 0.15MG TO CONSTITUTE BUPIVACAINE 0.5% W/EPI 1:200,[address] GORDON
== END 2020-12-02 11:50 | disposition home or self-care (01) ==
LOC: ORSCSDS 08:07
PROVIDERS: Orthopaedic Surgery
PROC: 0JBJ0ZX Excision of Right Hand Subcutaneous Tissue and Fascia, Open Approach, Diagnostic (ICD-10-PCS; principal; 2020-12-02 09:15)
DX: M1A.9XX1 Chronic gout, unspecified, with tophus (tophi) (principal); D21.10 Benign neoplasm of connective and other soft tissue of unspecified upper limb, including shoulder; I10 Essential (primary) hypertension; G47.33 Obstructive sleep apnea (adult) (pediatric); N18.30 Chronic kidney disease, stage 3 unspecified; E11.9 Type 2 diabetes mellitus without complications; Z86.718 Personal history of other venous thrombosis and embolism; Z79.01 Long term (current) use of anticoagulants; I50.9 Heart failure, unspecified; Z79.899 Other long term (current) drug therapy
CPT/HCPCS: 88305; 89060; J0171; J0690; J1100; J2370; J2405; J2704; J3010; J7120

== ENCOUNTER 2024-04-08 10:37 | Day surgery (SDC) | payer MEDICARE, BC ==
[~2024-04-08] VITALS: Ht 190.5 cm; Wt 104.9 kg
[~2024-04-08 10:37] MED LIST changes: +Lactated Ringer's 1,000 ML IV ONE; +Percocet 7.5-31 EACH PO; +propofoL 50 ML IV ONE
[2024-04-08] MEDS ORDERED: Vitamin D1000 UNI1 (11:50)
[2024-04-08] MEDS ORDERED: LORA2 (11:50)
[2024-04-08] MEDS ORDERED: ACET500 (11:50)
[2024-04-08] MEDS ORDERED: Robaxin750 MG PO (11:51)
[2024-04-08] MEDS ORDERED: Lactated Ringer's 1,000 ML IV ONE (12:21)
[2024-04-08 13:29] VITALS: BP 115/79
== END 2024-04-08 13:48 | disposition home or self-care (01) ==
LOC: ORSCSDS 10:37
PROVIDERS: Internal Medicine Gastroenterology
PROC: 0DJD8ZZ Inspection of Lower Intestinal Tract, Via Natural or Artificial Opening Endoscopic (ICD-10-PCS; principal; 2024-04-08 11:45)
DX: Z12.11 Encounter for screening for malignant neoplasm of colon (principal); Z86.010 Personal history of colon polyps; K57.30 Diverticulosis of large intestine without perforation or abscess without bleeding; G47.30 Sleep apnea, unspecified; E78.5 Hyperlipidemia, unspecified; I12.9 Hypertensive chronic kidney disease with stage 1 through stage 4 chronic kidney disease, or unspecified chronic kidney disease; E11.22 Type 2 diabetes mellitus with diabetic chronic kidney disease; N18.31 Chronic kidney disease, stage 3a; Z79.899 Other long term (current) drug therapy
CPT/HCPCS: 82947; J2704; J7120

== ENCOUNTER 2024-07-23 11:20 | Day surgery (SDC) | payer MEDICARE, BC ==
[~2024-07-23] VITALS: Ht 190.5 cm; Wt 108.4 kg
[~2024-07-23 11:20] MED LIST changes: +ACET500; +ELIQUIS5 M2 PO; +LORA2; -Lactated Ringer's 1,000 ML IV ONE; +Robaxin750 MG PO; +Vitamin D1000 UNI1; -propofoL 50 ML IV ONE
[2024-07-23] MEDS ORDERED: Heparin Sodium 1000 Units/ML 10ML MDV ONE (12:25)
[2024-07-23] MEDS ORDERED: NS 1,000 ML IV ONE ×2 (12:25→12:31)
[2024-07-23] MEDS ORDERED: NS 250 ML IV ONE (12:25)
[2024-07-23] MEDS ORDERED: FentaNYL Citrate 50 MCG/ML 2 ML Injection ONE (12:31)
[2024-07-23] MEDS ORDERED: Midazolam HCl 1MG / ML 2ML Vial ONE (12:31)
[2024-07-23] MEDS ORDERED: EpiNEPhrine 1 MG/1 ML 1ML Vial ONE (12:32)
[2024-07-23 14:55] VITALS: BP 145/82
[2024-07-23 15:00] VITALS: BP 141/83
--- NOTE | 2024-07-23 15:11 | NUR ---
pt arrives back to recovery room. sitting up in bed, talking to . all venous access sites wnl. pt. vss at this time. refreshements offered.
[2024-07-23 15:15] VITALS: BP 155/94
[2024-07-23 15:30] VITALS: BP 164/94
[2024-08-05] MEDS ORDERED: OXYC5 PO (11:15)
== END 2024-07-23 23:00 | disposition home or self-care (01) ==
LOC: MHTC 11:20
DX: I82.401 Acute embolism and thrombosis of unspecified deep veins of right lower extremity (principal); I82.501 Chronic embolism and thrombosis of unspecified deep veins of right lower extremity; I13.0 Hypertensive heart and chronic kidney disease with heart failure and stage 1 through stage 4 chronic kidney disease, or unspecified chronic kidney disease; E11.22 Type 2 diabetes mellitus with diabetic chronic kidney disease; N18.9 Chronic kidney disease, unspecified; I50.9 Heart failure, unspecified; G47.33 Obstructive sleep apnea (adult) (pediatric); E11.69 Type 2 diabetes mellitus with other specified complication; E78.5 Hyperlipidemia, unspecified; E66.9 Obesity, unspecified; Z68.29 Body mass index [BMI] 29.0-29.9, adult; Z88.6 Allergy status to analgesic agent; Z88.8 Allergy status to other drugs, medicaments and biological substances; Z79.01 Long term (current) use of anticoagulants; Z79.899 Other long term (current) drug therapy; Z90.49 Acquired absence of other specified parts of digestive tract
CPT/HCPCS: 37191; 37193; 76937; 99152; 99153; C1769; C1880; C1887; C1894; J0171; J1644; J2250; J3010; J7030; J7050; Q9967

== ENCOUNTER → 2024-09-25 | Outpatient (CLI) | payer MEDICARE, BC ==
[~2024-09-25] MED LIST changes: +OXYC5 PO
== END | disposition home or self-care (01) ==
LOC: LAB SHORT 11:48 → LAB 11:48
DX: E11.42 Type 2 diabetes mellitus with diabetic polyneuropathy (principal)
CPT/HCPCS: 87070; 87075; 87077; 87186; 87205

== ENCOUNTER → 2024-10-14 | Outpatient (CLI) | payer MEDICARE, BC | END | disposition home or self-care (01) | LOC: LAB SHORT 15:34 → LAB 15:34 | DX: E11.42 Type 2 diabetes mellitus with diabetic polyneuropathy (principal) | CPT/HCPCS: 87070; 87075; 87077; 87186; 87205 ==

== ENCOUNTER → 2024-11-07 | Outpatient (CLI) | payer MEDICARE, BC | LOC: LAB SHORT 10:00 → LAB 10:00 | DX: L97.526 Non-pressure chronic ulcer of other part of left foot with bone involvement without evidence of necrosis (principal) | CPT/HCPCS: 87070; 87075; 87205 ==

== ENCOUNTER → 2025-05-01 | Outpatient (CLI) | payer MEDICARE | LOC: LAB 10:21 → LAB SHORT 10:21 | DX: R35.0 Frequency of micturition (principal); N39.0 Urinary tract infection, site not specified | CPT/HCPCS: 87086 ==

== ENCOUNTER → 2025-07-01 | Outpatient (CLI) | payer MEDICARE, OTHER ==
[2025-07-01 16:40] LABS: BASOPHILS ABSOLUTE AUTO 0.04 K/mm3 (0.00-0.23); BASOPHILS PERCENT AUTO 1 % (0-2); EOSINOPHILS ABSOLUTE AUTO 0.35 K/mm3 (0.00-0.68); EOSINOPHILS PERCENT AUTO 6 % (0-6); Hematocrit 49.6 % (37.0-53.0); Hemoglobin 16.4 g/dL (13.5-17.5); IMMATURE GRAN ABSOLUTE AUTO 0.01 K/mm3 (0.00-0.10); IMMATURE GRAN PERCENT AUTO 0 % (0-1); LYMPHOCYTES ABSOLUTE AUTO 1.74 K/mm3 (0.84-5.20); LYMPHOCYTES PERCENT AUTO 29 % (21-46); MONOCYTES ABSOLUTE AUTO 0.43 K/mm3 (0.16-1.47); MONOCYTES PERCENT AUTO 7 % (4-13); Mean Corpuscular HGB Conc 33.1 g/dL (31.5-36.5); Mean Corpuscular Volume 96 fL (80-100); NEUTROPHILS ABSOLUTE AUTO 3.37 K/mm3 (1.96-9.15); NEUTROPHILS PERCENT AUTO 57 % (41-73); NRBC ABSOLUTE 0.00 K/mm3 (0.00-0.02); NRBC Auto 0.0 /100 WBC (0.0-0.2); Platelet Count 237 K/mm3 (150-400); RDW Coefficient Variation 14.3 % (11.7-14.2); RDW Standard Deviation 51.2 fL (35.1-46.3)
[2025-07-01 20:12] LABS: Alanine Aminotransfer (ALT/SGP 37 U/L (12-78); Albumin, Blood 4.0 g/dL (3.4-5.0); Albumin/Globulin Ratio 1.4 (0.8-1.8); Anion Gap 11 mmol/L (3-11); Aspartate Aminotrans (AST/SGOT 29 U/L (12-37); Bilirubin, Total 0.8 mg/dL (0.1-1.0); Blood Urea Nitrogen 29 mg/dL (8-24); CHOL/HDL RATIO 4.7; CO2, Blood 22 mmol/L (21-32); Calcium, Blood 9.5 mg/dL (8.5-10.1); Chloride, Blood 106 mmol/L (98-108); Cholesterol 198 mg/dL (50-200); Creatinine, Blood 1.29 mg/dL (0.60-1.20); Globulin, Blood 2.8 g/dL (2.2-4.0); Glucose, Blood 303 mg/dL (70-99); HDL Cholesterol 42 mg/dL (>39); LDL/HDL RATIO 2.0; Low Density Lipoprotein Chol 85 mg/dL (0-110); Potassium, Blood 4.0 mmol/L (3.5-5.5); Sodium, Blood 135 mmol/L (136-145); Total Protein, Blood 6.8 g/dL (6.4-8.2); Triglycerides 355 mg/dL (30-160); Very Low Density Lipoprot Chol 71 mg/dL (6-32)
== END ==
LOC: LAB SHORT 15:04 → LAB 15:04
PROVIDERS: Nurse Practitioner Family
DX: I50.9 Heart failure, unspecified (principal); N18.9 Chronic kidney disease, unspecified; E78.2 Mixed hyperlipidemia; E11.22 Type 2 diabetes mellitus with diabetic chronic kidney disease
CPT/HCPCS: 80053; 80061; 83036; 85025